=== PATIENT | male | born 1950 | race Caucasian/White ===

== ENCOUNTER 2016-12-13 10:20 | Outpatient (CLI) | payer MEDICARE, OTHER ==
[2016-12-13 18:01] LABS: CALCIUM 9.6 mg/dL (8.5-10.3); CREATININE 1.4 mg/dL (0.6-1.2); POTASSIUM 4.7 mmol/L (3.5-5.0)
== END 2016-12-13 10:21 | disposition home or self-care (01) ==
LOC: LAB.F 10:20
PROVIDERS: ATTEND Internal Medicine Cardiovascular Disease
DX: I50.32 Chronic diastolic (congestive) heart failure (principal)
CPT/HCPCS: 36415; 80048

== ENCOUNTER 2016-12-27 10:07 | Outpatient (CLI) | payer MEDICARE, OTHER ==
[2016-12-27 18:22] LABS: CALCIUM 9.6 mg/dL (8.5-10.3); POTASSIUM 4.2 mmol/L (3.5-5.0)
== END 2016-12-27 10:08 | disposition home or self-care (01) ==
LOC: LAB.F 10:07
PROVIDERS: ATTEND Internal Medicine Cardiovascular Disease
DX: I48.91 Unspecified atrial fibrillation (principal)
CPT/HCPCS: 36415; 80048

== ENCOUNTER 2020-01-13 16:11 | Emergency (ER) | payer MEDICARE, OTHER ==
--- NOTE | 2020-01-13 16:31 | ED Physician Documentation ---
PD HPI ALTERED MENTAL STATUS - Stated complaint Stated Complaint: FALL - POSSIBLE AMS - History obtained from History obtained from: Patient, Family - History of Present Illness Timing - onset: Other (69-year-old gentleman with history of heart disease and atrial fibrillation who presents with his , and they disagree on the reasons for the visit. She says that he has been acting odd for the last 4 days like he was on narcotics but is not on any, and then last night she worries he may have fallen down the stairs, she was at work I guess and found a broken glass at the bottom of the stairs and assumed that he dropped it on the way down while he was falling. 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.) Review of Systems Ten Systems: 10 systems reviewed and negative Constitutional: denies: Fever, Chills Eyes: denies: Loss of vision, Decreased vision Ears: denies: Loss of hearing, Ear pain Nose: denies: Rhinorrhea / runny nose, Congestion Throat: denies: Sore throat Cardiac: denies: Chest pain / pressure, Palpitations Respiratory: denies: Dyspnea, Cough PD PAST MEDICAL HISTORY - Past Medical History Cardiovascular: Atrial fibrillation, Valve disorder Respiratory: Sleep apnea Endocrine/Autoimmune: Type 2 diabetes GI: Colon polyps : None HEENT: None Psych: None Musculoskeletal: Osteoarthritis, Gout Derm: None - Past Surgical History General: Colonoscopy Cardiovascular: Valve replacement - Present Medications Home Medications: Ambulatory Orders Medication Instructions Recorded Confirmed Aspirin [Adult Low Dose Aspirin EC] 81 mg PO DAILY 09/03/15 10/15/15 Atorvastatin Calcium 40 mg PO DAILY 09/03/15 10/15/15 Carvedilol 12.5 mg PO BID 09/03/15 10/15/15 Colchicine 1.2 mg PO DAILY 09/03/15 10/15/15 Glipizide [Glipizide Xl] 2.5 mg PO DAILY 09/03/15 10/15/15 Oxycodone HCl/Acetaminophen 1 each PO QID 09/03/15 10/15/15 [Oxycodone-Acetaminophen 10-325] Warfarin [Coumadin] 5 mg PO 1400 09/03/15 09/04/15 allopurinoL [Allopurinol] 100 mg PO DAILY 09/03/15 10/15/15 lisinopriL [Lisinopril] 10 mg PO DAILY 09/03/15 10/15/15 predniSONE [Prednisone] 60 mg PO DAILY 10/15/15 10/15/15 - Allergies Allergies/Adverse Reactions: Allergies Allergy/AdvReac Type Severity Reaction Status Date / Time ampicillin Allergy Anaphylaxis Verified 09/03/15 14:45 - Social History Does the pt have substance abuse?: No - Family History Family history: reports: Non contributory PD ED PE NORMAL - Vitals Vital signs reviewed: Yes - General General: Alert and oriented X 3, Other (He is acting a little odd although he is alert and oriented. He does have horizontal nystagmus. Smallish pupils but reactive.) - Neck Neck: Supple, no meningeal sign, No bony TTP - Respiratory Respiratory: No respiratory distress, Clear bilaterally - Abdomen Abdomen: Non tender - Extremities Extremities: Other (Moderate bilateral pitting pedal edema at the calves, right knee has limited range of motion but is nontender.) - Neuro Neuro: Alert and oriented X 3, No motor deficit, No sensory deficit, Normal speech Eye Opening: Spontaneous Motor: Obeys Commands Verbal: Confused (slight) GCS Score: 14 Results - Vitals Vitals: Vital Signs - 24 hr 01/13/20 16:25 Temperature 36.6 C Heart Rate 73 Respiratory 16 Rate Blood Pressure 142/110 H O2 Saturation 96 Oxygen O2 Source Room air - Labs Labs: Laboratory Tests 01/13/20 01/13/20 01/13/20 16:49 17:22 17:22 WBC 6.7 RBC 4.21 L Hgb 14.3 Hct 42.8 MCV 101.7 H MCH 34.0 H MCHC 33.4 RDW 11.9 L Plt Count 142 MPV 9.7 Neut # (Auto) 4.1 Lymph # (Auto) 1.5 Levy # (Auto) 1.0 Eos # (Auto) 0.1 Baso # (Auto) 0.0 Absolute Nucleated RBC 0.00 Nucleated RBC % 0.0 Sodium 132 L Potassium 4.1 Chloride 95 L Carbon Dioxide 26 Anion Gap 11.0 BUN 52 H Creatinine 2.9 H Estimated GFR (MDRD) 22 L Glucose 94 Calcium 8.5 Total Bilirubin 1.1 H AST 58 H ALT 26 Alkaline Phosphatase 45 B-Natriuretic Peptide Total Protein 6.6 L Albumin 3.8 Globulin 2.8 Albumin/Globulin Ratio 1.4 Lipase 32 Urine Color YELLOW Urine Clarity CLEAR Urine pH 7.0 Ur Specific [place] <=1.005 Urine Protein NEGATIVE Urine Glucose (UA) NEGATIVE Urine Ketones NEGATIVE Urine Occult Blood TRACE-INTA Urine Nitrite NEGATIVE Urine Bilirubin NEGATIVE Urine Urobilinogen 0.2 (NORMAL) Ur Leukocyte Esterase NEGATIVE Ur Microscopic Review NOT INDICATED Urine Culture Comments NOT INDICATED Salicylates < 6.0 Urine Opiates Screen NEGATIVE Ur Oxycodone Screen POSITIVE H Urine Methadone Screen NEGATIVE Ur Propoxyphene Screen NEGATIVE Acetaminophen < 10 L Ur Barbiturates Screen NEGATIVE Ur Tricyclics Screen NEGATIVE Ur Phencyclidine Scrn NEGATIVE Ur Amphetamine Screen NEGATIVE U Methamphetamines Scrn NEGATIVE U Benzodiazepines Scrn POSITIVE H Urine Cocaine Screen NEGATIVE U Cannabinoids Screen NEGATIVE Ethyl Alcohol < 5.0 01/13/20 17:22 WBC RBC Hgb Hct MCV MCH MCHC RDW Plt Count MPV Neut # (Auto) Lymph # (Auto) Levy # (Auto) Eos # (Auto) Baso # (Auto) Absolute Nucleated RBC Nucleated RBC % Sodium Potassium Chloride Carbon Dioxide Anion Gap BUN Creatinine Estimated GFR (MDRD) Glucose Calcium Total Bilirubin AST ALT Alkaline Phosphatase B-Natriuretic Peptide 125 H Total Protein Albumin Globulin Albumin/Globulin Ratio Lipase Urine Color Urine Clarity Urine pH Ur Specific [place] Urine Protein Urine Glucose (UA) Urine Ketones Urine Occult Blood Urine Nitrite Urine Bilirubin Urine Urobilinogen Ur Leukocyte Esterase Ur Microscopic Review Urine Culture Comments Salicylates Urine Opiates Screen Ur Oxycodone Screen Urine Methadone Screen Ur Propoxyphene Screen Acetaminophen Ur Barbiturates Screen Ur Tricyclics Screen Ur Phencyclidine Scrn Ur Amphetamine Screen U Methamphetamines Scrn U Benzodiazepines Scrn Urine Cocaine Screen U Cannabinoids Screen Ethyl Alcohol PD MEDICAL DECISION MAKING - ED course ED course: 69-year-old gentleman presents with mild confusion/altered mental status. He has an extensive medical history. There was some confusion about his medications but we were Able to ascertain is that about 10 days ago he started furosemide because he gained great weight recently. I suspect this drove him into mild acute renal insufficiency which caused his oxycodone levels which he takes for his need to go up. We discussed admission to the hospital for IV hydration and medication management but he very much wanted to be discharged. He will stop the water pill for now and follow-up with his doctor for recheck within a day or 2. Departure - Departure Disposition: 01 Home, Self Care Clinical Impression: Renal insufficiency, Status post fall Altered mental status Qualifiers: Altered mental status type: delirium Qualified Code(s): R41.0 - Disorientation, unspecified Knee pain Qualifiers: Chronicity: chronic Laterality: right Qualified Code(s): M25.561 - Pain in right knee; G89.29 - Other chronic pain Condition: Good Record reviewed to determine appropriate education?: Yes Instructions: ED Dehydration, ED Confusion Comments: Return anytime if worsening, follow-up with your primary care physician tomorrow or the next day, will likely want to recheck labs to make sure that your acute renal insufficiency is improving off of the water pills. Do not take your water pills. Try to take as little oxycodone for your chronic pain as possible.
[2020-01-13 16:55] LABS: MUDS CUTOFF CONCENTRATIONS CUTOFF CONC BELOW:
[2020-01-13 16:58] LABS: BILIRUBIN,URINE NEGATIVE (NEGATIVE); GLUCOSE, URINE (UA) NEGATIVE (NEGATIVE); KETONES,URINE (UA) NEGATIVE (NEGATIVE); LEUKOCYTE ESTERASE, URINE NEGATIVE (NEGATIVE); NITRITE,URINE NEGATIVE (NEGATIVE); OCCULT BLOOD,URINE TRACE-INTA (NEGATIVE); PROTEIN,URINE NEGATIVE (NEGATIVE); UROBILINOGEN,URINE 0.2 (NORMAL) E.U./dL (NORMAL)
[2020-01-13 17:01] LABS: CLARITY,URINE CLEAR (CLEAR)
--- NOTE | 2020-01-13 17:02 | CT Report ---
PROCEDURE: HEAD WO INDICATIONS: fall, poss head inj TECHNIQUE: Noncontrast 4.5 mm thick angled axial sections acquired from the foramen magnum to the vertex. For r adiation dose reduction, the following was used: automated exposure control, adjustment of mA and/or kV according to patient size. COMPARISON: CT cervical spine 01/13/2020 FINDINGS: Image quality: Excellent. The ventricular system and cortical sulci demonstrate atrophy, consistent for patient's stated age. There are areas of hypodensity in the periventricular and subcortical white matter. There is no acut e intra or extra-axial fluid collection. No acute hemorrhage, mass lesion or midline shift. Brainst em is unremarkable. Globes are symmetrical. Sinuses are aerated. Osseous structures are intact. IMPRESSION: 1. No acute intracranial process. 2. Mild atrophy and chronic microvascular ischemic changes. Reviewed by: Valerie Goldberg MD on 01/13/2020 5:00 PM PDT Approved by: Valerie Goldberg MD on 01/13/2020 5:00 PM PDT Station ID: [id number]
--- NOTE | 2020-01-13 17:07 | CT Report ---
PROCEDURE: CERVICAL SPINE WO INDICATIONS: fall, trauma. TECHNIQUE: Noncontrast 3 mm thick sections acquired from the skull base to the T4 level. Sagittal and coronal r eformats were then constructed. For radiation dose reduction, the following was used: automated exp osure control, adjustment of mA and/or kV according to patient size. COMPARISON: None. FINDINGS: Image quality: Excellent. Bones: No fractures or dislocations. Visualized superior ribs are intact. Spine degenerative disc d isease and facet arthropathy are noted. 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 Median sternotomy wires noted. Chronic appearing left first rib fracture. Soft tissues: Prevertebral soft tissues are normal in thickness. No paravertebral hematomas. No ap ical pneumothoraces. IMPRESSION: No fracture. No acute osseous lesion. If there is continued clinical concern for pathology, then MRI should be considered for further evaluation. Reviewed by: Marie Walton MD, PhD on 01/13/2020 5:06 PM PDT Approved by: Marie Walton MD, PhD on 01/13/2020 5:06 PM PDT Station ID: [id number]
[2020-01-13 17:13] LABS: AMPHETAMINE SCREEN,URINE NEGATIVE (NEGATIVE); BENZODIAZEPINES SCREEN, URINE POSITIVE (NEGATIVE); COCAINE SCREEN URINE NEGATIVE (NEGATIVE); METHADONE SCREEN, URINE NEGATIVE (NEGATIVE); METHAMPHETAMINES SCREEN, URINE NEGATIVE (NEGATIVE); OPIATE SCREEN, URINE NEGATIVE (NEGATIVE); OXYCODONE SCREEN, URINE POSITIVE (NEGATIVE); PROPOXYPHENE SCREEN, URINE NEGATIVE (NEGATIVE); TRICYCLIC ANTIDEPRESSANT,URINE NEGATIVE (NEGATIVE)
[2020-01-13 17:30] LABS: BASOPHILS % (AUTO) 0.4 %; EOSINOPHILS # (AUTO) 0.1 10^3/uL (0.0-0.7); EOSINOPHILS % (AUTO) 1.6 %; HGB - HEMOGLOBIN 14.3 g/dL (14.0-18.0); LYMPHOCYTES # (AUTO) 1.5 10^3/uL (1.5-3.5); LYMPHOCYTES % (AUTO) 22.7 %; MEAN CORPUSCULAR HGB CONC 33.4 g/dL (32.0-36.0); MEAN CORPUSCULAR VOLUME 101.7 fL (80.0-94.0); MEAN PLATELET VOLUME 9.7 fL (7.4-11.4); MONOCYTES % (AUTO) 14.7 %; NEUTROPHILS # (AUTO) 4.1 10^3/uL (1.5-6.6); NEUTROPHILS % (AUTO) 60.3 %; PLT - PLATELET COUNT 142 10^3/uL (130-450); RED BLOOD COUNT 4.21 10^6/uL (4.70-6.10); RED CELL DISTRIBUTION WIDTH 11.9 % (12.0-15.0); WHITE BLOOD COUNT 6.7 x10^3/uL (4.8-10.8)
[2020-01-13 17:45] LABS: ACETAMINOPHEN < 10 ug/mL (10-30); ALBUMIN 3.8 g/dL (3.2-5.5); ALBUMIN/GLOBULIN RATIO 1.4 (1.0-2.2); ALKALINE PHOSPHATASE 45 IU/L (42-121); ALT ALANINE AMINOTRANSFERASE 26 IU/L (10-60); AST ASPARTATE AMINOTRANSFERASE 58 IU/L (10-42); BILIRUBIN,TOTAL 1.1 mg/dL (0.2-1.0); BUN - BLOOD UREA NITROGEN 52 mg/dL (6-20); CALCIUM 8.5 mg/dL (8.5-10.3); CARBON DIOXIDE - CO2 26 mmol/L (21-32); CHLORIDE 95 mmol/L (101-111); CREATININE 2.9 mg/dL (0.6-1.2); GLUCOSE 94 mg/dL (70-100); LIPASE 32 U/L (22-51); SALICYLATE < 6.0 mg/dL; SODIUM 132 mmol/L (135-145); TOTAL PROTEIN 6.6 g/dL (6.7-8.2)
--- NOTE | 2020-01-13 18:05 | XRAY Report ---
PROCEDURE: Chest 1 View X-Ray INDICATIONS: dyspnea TECHNIQUE: One view of the chest was acquired. COMPARISON: None FINDINGS: Surgical changes and devices: Median sternotomy wires. Lungs and pleura: No pleural effusions or pneumothorax. Lungs are clear. Mediastinum: Mediastinal contours appear normal. Heart size is normal. Bones and chest wall: No suspicious bony lesions. Overlying soft tissues appear unremarkable. IMPRESSION: No acute cardiopulmonary disease process. Reviewed by: Marie Walton MD, PhD on 01/13/2020 6:03 PM PDT Approved by: Marie Walton MD, PhD on 01/13/2020 6:03 PM PDT Station ID: [id number]
--- NOTE | 2020-01-13 18:06 | XRAY Report ---
PROCEDURE: Knee 3 View RT INDICATIONS: knee pain TECHNIQUE: 3 views of the right knee(s) were acquired. COMPARISON: None. FINDINGS: Bones: No fractures or dislocations. No suspicious bony lesions. Mild lateral compartment osteophyt ic degenerative change. Moderate medial and patellofemoral compartment osteoarthritis change. Soft tissues: No joint effusion. No suspicious soft tissue calcifications. IMPRESSION: 1. Tricompartmental osteoarthritis. 2. No fracture. No acute osseous lesion. If there is continued clinical concern for pathology, then r epeat plain film radiographs (7-10 days) or advanced imaging (CT, MR, bone scan) should be considered for further evaluation. Knee Reviewed by: Marie Walton MD, PhD on 01/13/2020 6:05 PM PDT Approved by: Marie Walton MD, PhD on 01/13/2020 6:05 PM PDT Station ID: [id number]
[2020-01-13 18:10] VITALS: BP 148/77
== END 2020-01-13 18:12 | disposition home or self-care (01) ==
LOC: ED 16:11
DX: N28.9 Disorder of kidney and ureter, unspecified (principal); R41.0 Disorientation, unspecified; M17.11 Unilateral primary osteoarthritis, right knee; G89.29 Other chronic pain; R60.0 Localized edema; Z91.81 History of falling; I51.9 Heart disease, unspecified; I48.91 Unspecified atrial fibrillation; Z95.2 Presence of prosthetic heart valve; Z79.01 Long term (current) use of anticoagulants; Z79.82 Long term (current) use of aspirin; E11.9 Type 2 diabetes mellitus without complications; Z79.84 Long term (current) use of oral hypoglycemic drugs
CPT/HCPCS: 36415; 70450; 71045; 72125; 80053; 80306; 80307; 80320; 80329; 81001; 81003; 83690; 83880; 85025; 87086; 99284

== ENCOUNTER 2023-02-02 12:08 | Outpatient (CLI) | payer MEDICARE, OTHER | END 2023-02-02 12:09 | disposition home or self-care (01) | LOC: DI.S 12:08 | PROVIDERS: ATTEND Student in an Organized Health Care Education/Training Program | DX: Z53.9 Procedure and treatment not carried out, unspecified reason (principal) ==

== ENCOUNTER 2023-02-03 09:03 | Outpatient (CLI) | payer MEDICARE, OTHER ==
--- NOTE | 2023-02-03 11:53 | XRAY Report ---
PROCEDURE: Chest 2 View X-Ray INDICATIONS: COUGH TECHNIQUE: 2 views of the chest were acquired. COMPARISON: Chest radiograph 01/13/2020 FINDINGS: Surgical changes and devices: Sternotomy wires and prosthetic heart valve are noted. Lungs and pleura: No pleural effusions or pneumothorax. Lungs are clear. Mediastinum: Mediastinal contours appear normal. Heart size is normal. Bones and chest wall: No suspicious bony lesions. Overlying soft tissues appear unremarkable. Sev ere degenerative changes in the shoulders. IMPRESSION: No acute cardiopulmonary process. Reviewed by: Nick Otoole MD on 02/03/2023 11:51 AM PDT Approved by: Nick Otoole MD on 02/03/2023 11:51 AM PDT Station ID: [id number]
== END 2023-02-03 23:59 | disposition home or self-care (01) ==
LOC: DI.S 09:03
PROVIDERS: ATTEND Student in an Organized Health Care Education/Training Program
DX: R05.9 Cough, unspecified (principal); Z86.16 Personal history of COVID-19